=== PATIENT | male | born 1980 | race Caucasian/White ===

== ENCOUNTER 2023-02-23 10:03 | Emergency (ER) | payer OTHER, SELFPAY ==
[2023-02-23] VITALS (30 sets, daily range): BP systolic 101–137; BP diastolic 80–98; PULSE 56–84; RESP 14–30; TEMP 36.5; O2SAT 95–100
--- NOTE | ~2023-02-23 | CT_ITS ---
Non-contrast Head CT History: Syncope versus seizure Technique: Axial non-contrast imaging of the brain was performed. Dose reduction technique was used on this scan by utilizing automated exposure control and iterative reconstruction technique. The dose -length product (DLP) was 605.33 mGy-cm. Findings: There is no evidence of intracranial hemorrhage, mass lesion, or acute infarct. Brain par enchyma appears normal. The ventricles and subarachnoid spaces are normal in size. The calvarium ap pears normal. There is extensive sinusitis of the right ethmoid and bilateral maxillary sinuses, with partial involvement of the right frontal sinus. Remaining paranasal sinuses and mastoid air cells ar e clear.. Impression: No intracranial abnormality seen. Sinus disease, as above. Reviewed, dictated and finalized at location . ICAL SUPERVISOR Impression: No intracranial abnormality seen. Sinus disease, as above.
--- NOTE | 2023-02-23 10:04 | ECG_ITS ---
Measurements Intervals [place]ity Rate: 62 P: -22 VA: 140 QRS: 52 QRSD: 99 T: 40 QT: 397 QTc: 404 Interpretive Statements SINUS RHYTHM BASELINE ARTIFACT- I, III, AVL NORMAL ECG NO PREVIOUS ECG AVAILABLE FOR COMPARISON Electronically Signed On 02-23-2023 10:36:50 PRODUCTION ANALYST by David Willett D.O.
[2023-02-23 10:28] LABS: Basophils Percent Auto 0.2 % (0.2-1.2); Eosinophils Absolute Auto 0.1 K/mm3 (0-0.3); Hematocrit 45.1 % (42.0-52.0); Hemoglobin 15.8 g/dL (14.0-18.0); Immature Granulocyte Absolute 0.03 K/mm3 (0.00-0.031); Immature Granulocyte Percent A 0.3 % (0-0.5); Lymphocytes Absolute Auto 2.41 K/mm3 (0.9-3.2); Lymphocytes Percent Auto 24.2 % (18.3-44.2); Mean Corpuscular Hemoglobin 30.6 pg (26-34); Mean Corpuscular Volume 87.4 fl (80-100); Mean Platelet Volume 9.1 fl (7.4-10.4); Monocytes Absolute Auto 1.1 K/mm3 (0.1-0.6); Monocytes Percent Auto 10.7 % (2.6-8.5); Neutrophils Absolute Auto 6.3 K/mm3 (1.3-6.7); Neutrophils Percent Auto 63.6 % (45.5-73.1); Platelet Count Result 364 k/mm3 (150-375); Red Blood Count 5.16 M/mm3 (4.6-6.20); Red Cell Distribution Width 12.7 % (11.5-14.5)
[2023-02-23 10:37] LABS: Alanine Aminotransferase 18 U/L (6-50); Albumin Level 4.4 g/dL (3.5-5.1); Alkaline Phosphatase 92 U/L (38-126); Anion Gap 11 mmol/L (8-16); Aspartate Amino Transferase 22 U/L (17-59); Bilirubin,Total 0.6 mg/dL (0.2-1.3); Blood Urea Nitrogen 11 mg/dL (9-20); Calcium 9.5 mg/dL (8.4-10.2); Carbon Dioxide 20 mmol/L (22-30); Chloride 108 mmol/L (98-107); Estimated CRCL calculation 131 ml/min; Estimated Glomerular Filt Rate > 60; Glucose 99 mg/dL (65-110); Potassium 3.9 mmol/L (3.4-5.0); Sodium 139 mmol/L (137-145)
--- NOTE | 2023-02-23 11:03 | ED.SYNCOPE ---
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 Patient states that he was up and getting ready to go to an airport when he lost consciousness. He states that he woke up covered in his own urine. He notes about 12 these episodes over the last 6 months or so. He is following with multiple physicians and multiple specialist where he lives in [place]. 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 He additionally notes that he has had some URI like symptoms and nasal congestion over the last 3 days. The pain seems to be worse on the right side and is associated with pressure behind his eye and in his sinuses on the right side. He is having green colored discharge from his nares. Denies any vision changes, denies any numbness or weakness in his arms or legs. Related Data Allergies Allergy/AdvReac Type Severity Reaction Status Date / Time No Known Allergies Allergy Verified 02/23/23 10:54 Review of Systems Review of Systems: All systems reviewed & are unremarkable except as noted in HPI and below Exam Narrative: GENERAL: Well-appearing, well-nourished, and in no acute distress. HEAD: Normocephalic, atraumatic. EYES: PERRLA and EOMI. ENT: Nares clear. Mucous membranes moist. Tenderness over the frontal and maxillary sinuses bilaterally. NECK: Supple. CHEST: Clear to auscultation. No respiratory distress. HEART: Regular rate and rhythm. Normal peripheral pulses. ABDOMEN: Soft, nontender, nondistended. EXTREMITIES: Normal range of motion. No edema. SKIN: Warm, dry, no rash. NEURO: No focal deficits. Alert and oriented x3. PSYCH: Normal mood and affect. Course Course Emergency Course: Chart review performed. Patient here for syncope. Triage vitals normal. No prior visits in our system. Patient seen and evaluated, in no acute distress. He is non toxic appearing with no neurological deficits appreciated. No ability view any of [place]. Suspect he has sinusitis on top of all of the additional chronic neurological issues that he has been dealing with. CT brain ordered as he is not from this area and had suspected seizure vs syncope. CBC unremarkable, CMP normal, troponin normal. Viral swab negative. CT shows sinusitis, given green discharge, will do antibiotics. Will reeval. Will discharge on augmentin and afrin. Advise tylenol and ibuprofen for pain. Will refer to ENT locally should he decide to stay in the area. Patient got upset with staff and eloped from the emergency department. He was able to print and provide him with his prescriptions prior to leaving the emergency department waiting room. DISPOSITION: ELOPED Vital Signs Vital signs: Vital Signs Pulse Rate 70 02/23/23 10:12 Respiratory Rate 18 02/23/23 10:12 Pulse Oximetry 100 02/23/23 10:12 Temperature 97.7 F 02/23/23 10:13 Pulse Rate 56 L 02/23/23 13:30 Respiratory Rate 16 02/23/23 13:30 Blood Pressure 137/87 02/23/23 11:31 Pulse Oximetry 100 02/23/23 13:30 Oxygen Delivery Room Air 02/23/23 10:23 MDM - Syncope Lab Data 02/23/23 10:20 02/23/23 10:20 Labs: Lab Results 02/23/23 02/23/23 Range/Units 10:20 11:43 WBC 10.0 (4.5-10.0) K/mm3 RBC 5.16 (4.6-6.20) M/mm3 Hgb 15.8 (14.0-18.0) g/dL Hct 45.1 (42.0-52.0) % MCV 87.4 (80-100) fl MCH 30.6 (26-34) pg MCHC 35.0 (32-36) g/dl RDW 12.7 (11.5-14.5) % Plt Count 364 (150-375) k/mm3 MPV 9.1 (7.4-10.4) fl Immature Gran % (Auto) 0.3 (0-0.5) % Neut % (Auto) 63.6 (45.5-73.1) % Lymph % (Auto) 24.2
[2023-02-23 11:44] LABS: Troponin I < 0.012 ng/mL (0.000-0.034)
[2023-02-23] MEDS: MORPHINE SULFATE (*CRX) 4 MG/ML INJ IV PUSH (11:45)
[2023-02-23] MEDS: ONDANSETRON INJ 4 MG/2 ML VIAL IV PUSH (11:45)
[2023-02-23] MEDS: AMPICILLIN SULB 3 GM/NS 100 ML 3 GM/100 ML VIAL IVPB (12:13)
[2023-02-23 12:24] LABS: Influenza A QL RT-PCR Negative (Negative); Influenza B QL RT-PCR Negative (Negative); RSV RNA, RT-PCR Negative (Negative); SARS-CoV-2 RNA PCR Negative (Negative)
== END 2023-02-23 14:19 | disposition left against medical advice (07) ==
PROVIDERS: Emergency Provider Student in an Organized Health Care Education/Training Program
DX: R55 Syncope and collapse (principal); J32.2 Chronic ethmoidal sinusitis; J32.0 Chronic maxillary sinusitis; J32.1 Chronic frontal sinusitis; Z20.822 Contact with and (suspected) exposure to COVID-19
CPT/HCPCS: 36415; 70450; 80053; 84484; 85025; 87637; 93005; 96365; 96375; 99284; J0295; J2270; J2405